=== PATIENT | female | born 1990 | race Caucasian/White ===

== ENCOUNTER 2017-03-17 12:30 | Emergency (ER) | payer OTHER ==
--- NOTE | ~2017-03-17 | US106 ---
[facility] A Service of [facility] RADIOLOGY TEXT RESULTS PATIENT: HOLLAND BRAUN LOCATION: SED : 88 UNIT #: [id number] AGE: [address]: Dylan Blanton MD SEX: F ORDER DR: [id number] [place] [id number] E MR#: [id number] Acc #: [id number] NAME: HOLLAND BRAUN : 1990 SEX: F STUDY DATE/TIME: 03/17/2017 18:18 UNIT: SED ROOM: STUDY DESCRIPTION: US Preg Uterus Transvaginal Attending Physician: Dylan Blanton M.D. Ordering Physician: Dylan Blanton M.D. Primary Care Physician: No Primary Care Physician MEDICAL IMAGING REPORT This report is preliminary unless electronic signature is present. EXAM ultrasound HISTORY Pelvic pain for 3 days. Positive beta HCG. FINDINGS Longitudinal and transverse sonograms were obtained as well as transvaginal sonography. The examination shows a gestational sac within the uterus. It measures 4.5 cm corresponding to a 10-week . Yolk sac is identified measuring 6 mm. There is a pole with a crown rump length of 1.7 cm. heart tones are clearly identified. The right ovary measures 3.1 cm. There is normal ovarian blood flow. The left ovary measures 1.8 cm and also has normal blood flow. Transvaginal sonography was performed. The heart tones again were clearly identified. CONCLUSION 1. Normal intrauterine of approximately 9 weeks. heart tones are identified. The examination is within normal limits Dictated by... Joshua Betancourt M.D. THIS IS AN ELECTRONICALLY VERIFIED REPORT Joshua Betancourt M.D. at 03/21/2017 5:14 PM TARIK/yvonne TD: 03/18/2017 03:24 JOB #: [id number] MEDICAL IMAGING REPORT [facility] A Service of [facility] RADIOLOGY TEXT RESULTS PATIENT: HOLLAND BRAUN LOCATION: [facility] #: [id number] : [birth year] UNIT #: [id number] AGE: [address]: Dylan Blanton MD SEX: F ORDER DR: Page 1 of 1
[~2017-03-17 12:30] MED LIST: ATARAX PO; B6100 MG; BACITRACIN30 GM TOP; BACTRIM DS TABL1 TA1 PO; CELEXA PO; CLEOCIN HCL300 M1 PO; DICLOFENAC PO; FLEXERIL10 MG PO; HYDROXYZINE PO; IRON1 TAB PO; KEFLEX PO; LORATADINE PO; PERCOCET PO; PHENERGAN PO; PHENERGAN25 MG PO; PRENATAL1 TA1; PRILOSEC20 MG PO; TRAZODONE; ULTRAM PO; VALTREX; ZOLOFT
[2017-03-17] MEDS ORDERED: NO MEDICATIONS (13:46)
[2017-03-17 14:06] LABS: BASOPHIL% 0.4 % (0-2.5); EOSINOPHIL# 0.1 X10e3 (0-0.7); HEMATOCRIT 34.5 % (35.0-45.0); HEMOGLOBIN 11.3 gm/dL (12.0-16.0); LYMPHOCYTE% 11.8 % (17.0-45.0); MEAN CELL VOLUME 72.3 FL (83-96); MEAN CORPUSCULAR HEMOGLOBIN 23.6 PG (28-34); MEAN CORPUSCULAR HGB CONC 32.7 g/dL (30-36); MEAN PLATELET VOLUME 9.6 FL (6.5-11.5); MONOCYTE% 11.6 % (3.0-12.0); NEUTROPHIL# 6.2 X10e3 (1.5-7.1); NEUTROPHIL% 75.2 % (40-75); PLATELET COUNT 156 X10e3 (140-420); RED BLOOD COUNT 4.78 X10e (3.90-5.30); RED CELL DISTRIBUTION WIDTH 20.1 % (11.0-15.5); WHITE BLOOD COUNT 8.3 X10e3 (4.0-10.5)
[2017-03-17 14:15] LABS: DIFF IND NO
[2017-03-17 14:42] LABS: ALBUMIN SERUM 3.3 g/dL (3.5-5.0); BILIRUBIN, DIRECT 0.1 mg/dL (0.0-0.2); BILIRUBIN,TOTAL 0.1 mg/dL (0.2-2.0); CALCIUM SERUM 8.4 mg/dL (8.4-10.2); CREATININE SERUM 0.6 mg/dL (0.6-1.4); POTASSIUM 4.1 mmol/L (3.5-5.1); PROTEIN TOTAL SERUM 6.6 g/dL (6.0-8.3)
[2017-03-17 15:59] LABS: URINE APPEARANCE SL CLOUDY; URINE BILIRUBIN NEG (NEG); URINE BLOOD NEG (NEG); URINE COLOR YELLOW; URINE GLUCOSE NEG (NORM); URINE KETONE NEG (NEG); URINE NITRATE NEG (NEG); URINE PH 6.5 (5-8); URINE PROTEIN NEG (NEG); URINE SOURCE CLEAN CATCH; URINE UROBILINOGEN 0.2 MG/DL (NORM)
[2017-03-17 16:02] LABS: MICRO INDICATED? NO; URINE LEUKOCYTE ESTERASE NEG (NEG)
[2017-03-20 10:40] LABS: CHLAMYDIA TRACH Not Detected (Not Detected); N GONOR Not Detected (Not Detected)
== END 2017-03-17 19:53 | disposition home or self-care (01) ==
LOC: SED 12:30
PROVIDERS: Emergency Medicine
DX: O99.511 Diseases of the respiratory system complicating pregnancy, first trimester (principal); J02.9 Acute pharyngitis, unspecified; O26.891 Other specified pregnancy related conditions, first trimester; R10.2 Pelvic and perineal pain; O99.341 Other mental disorders complicating pregnancy, first trimester; F43.10 Post-traumatic stress disorder, unspecified; F41.9 Anxiety disorder, unspecified; F32.9 Major depressive disorder, single episode, unspecified; O99.331 Smoking (tobacco) complicating pregnancy, first trimester; F17.210 Nicotine dependence, cigarettes, uncomplicated
CPT/HCPCS: 36415; 76817; 80048; 80076; 81003; 83690; 84702; 85025; 87210; 87491; 87591; 87651; 87808; 87905; 99284

== ENCOUNTER 2017-05-18 11:55 | Emergency (ER) | payer OTHER ==
[~2017-05-18] VITALS: Ht 165.1 cm; Wt 81.6 kg
[~2017-05-18 11:55] MED LIST changes: +NO MEDICATIONS
[2017-05-18 12:48] LABS: BASOPHIL# 0.1 X10e3 (0-0.3); BASOPHIL% 0.9 % (0-2.5); EOSINOPHIL# 0.4 X10e3 (0-0.7); EOSINOPHIL% 2.6 % (0.0-7.0); HEMATOCRIT 35.3 % (35.0-45.0); LYMPHOCYTE# 1.5 X10e3 (1.0-3.5); LYMPHOCYTE% 10.1 % (17.0-45.0); MEAN CELL VOLUME 78.7 FL (83-96); MEAN CORPUSCULAR HEMOGLOBIN 26.8 PG (28-34); MEAN CORPUSCULAR HGB CONC 34.1 g/dL (30-36); MEAN PLATELET VOLUME 9.2 FL (6.5-11.5); MONOCYTE# 0.8 X10e3 (0-1.0); MONOCYTE% 5.7 % (3.0-12.0); NEUTROPHIL# 11.9 X10e3 (1.5-7.1); NEUTROPHIL% 80.7 % (40-75); PLATELET COUNT 152 X10e3 (140-420); RED BLOOD COUNT 4.49 X10e (3.90-5.30); RED CELL DISTRIBUTION WIDTH 17.1 % (11.0-15.5); WHITE BLOOD COUNT 14.7 X10e3 (4.0-10.5)
[2017-05-18 12:51] LABS: DIFF IND NO
[2017-05-18 13:16] LABS: BUN/CREATININE RATIO 11.66; CALCIUM SERUM 8.5 mg/dL (8.4-10.2); CREATININE SERUM 0.6 mg/dL (0.6-1.4)
== END 2017-05-18 14:22 | disposition home or self-care (01) ==
LOC: SED 11:55
PROVIDERS: Student in an Organized Health Care Education/Training Program
DX: O20.0 Threatened abortion (principal); F41.9 Anxiety disorder, unspecified; F17.200 Nicotine dependence, unspecified, uncomplicated; Z3A.17 17 weeks gestation of pregnancy
CPT/HCPCS: 36415; 80048; 85025; 86900; 86901; 99284